=== PATIENT | female | born 1945 | race Caucasian/White ===

== ENCOUNTER 2017-04-06 07:58 | Inpatient (IN) | payer MEDICARE, OTHER ==
[~2017-04-06] VITALS: Ht 160 cm; Wt 103.9 kg
[~2017-04-06 07:58] MED LIST: ? BP MED; AMLO10 PO; ASPI325 PO; ASPI81EC; CPAP; DIPASPER PO; Furosemide20 MG PO; GLAUCOMA DROPS; Humalog100 UNIT/1 SC; INSLI100I SUBQ; INSULANI SUBQ; INSULANPEN SC; IRON; IRON PO; LATA.005SO BOTHEYES; LISHYD2025 PO; LISI5 PO; METF500; METF500 PO; METO25 PO; METO25ER PO; NABU500; NALT50 PO; OMEP20ER PO; PRAV20 PO; PRAZ1 PO; ROSI4; ROSU10TA; SERT50; SERT50 PO; Xalatan2.5 ML LEFTEYE; [UNRECOGNIZED DRUG - REMARK]; [UNRECOGNIZED DRUG - REMARK]
[2017-04-06] MEDS ORDERED: CYCL0.05OP (08:20)
[2017-04-06] MEDS ORDERED: NEBI5 PO (08:21)
[2017-04-06] MEDS ORDERED: ASPI81CH PO (08:21)
[2017-04-06 08:48] LABS: BASOPHILS ABSOLUTE AUTO 0.02 K/mm3 (0.00-0.23); BASOPHILS PERCENT AUTO 0 % (0-2); EOSINOPHILS ABSOLUTE AUTO 0.24 K/mm3 (0.00-0.68); EOSINOPHILS PERCENT AUTO 2 % (0-6); Hematocrit 33.2 % (33.0-51.0); Hemoglobin 10.6 g/dL (11.5-16.0); IMMATURE GRAN ABSOLUTE AUTO 0.05 K/mm3 (0.00-0.10); IMMATURE GRAN PERCENT AUTO 0 % (0-1); LYMPHOCYTES ABSOLUTE AUTO 1.22 K/mm3 (0.84-5.20); LYMPHOCYTES PERCENT AUTO 10 % (21-46); MONOCYTES ABSOLUTE AUTO 0.67 K/mm3 (0.16-1.47); MONOCYTES PERCENT AUTO 6 % (4-13); Mean Corpuscular HGB Conc 31.9 g/dL (31.5-36.5); Mean Corpuscular Volume 91 fL (80-100); Mean Platelet Volume 10.1 fL (9.1-12.4); NEUTROPHILS ABSOLUTE AUTO 9.52 K/mm3 (1.96-9.15); NEUTROPHILS PERCENT AUTO 81 % (41-73); NRBC ABSOLUTE 0.02 K/mm3 (0.00-0.02); NRBC Auto 0.2 /100 WBC (0.0-0.2); Platelet Count 323 K/mm3 (150-400); RDW Coefficient Variation 15.4 % (11.7-14.2); RDW Standard Deviation 50.3 fL (35.1-46.3); Red Blood Cell Count 3.66 M/mm3 (3.80-5.20); White Blood Cell Count 11.72 K/mm3 (4.00-11.30)
[2017-04-06 08:49] LABS: PCO2 Arterial 42.1 mmHg (35-45)
[2017-04-06 08:52] LABS: Alanine Aminotransfer (ALT/SGP 16 U/L (12-78); Albumin, Blood 3.3 g/dL (3.4-5.0); Albumin/Globulin Ratio 0.8 (0.8-1.8); Alk Phos 71 U/L (50-136); Anion Gap 9 mmol/L (6-16); Aspartate Aminotrans (AST/SGOT 11 U/L (12-37); Bilirubin, Total 0.4 mg/dL (0.1-1.0); Blood Urea Nitrogen 19 mg/dL (8-24); Bun/Creatinine Ratio 15.6 (12.0-20.0); CO2, Blood 25 mmol/L (21-32); Calcium, Blood 8.1 mg/dL (8.5-10.1); Chloride, Blood 106 mmol/L (98-108); Creatinine, Blood 1.22 mg/dL (0.40-1.00); Glomerular Filtration Rate 46 (60-); Glucose, Blood 205 mg/dL (70-99); Potassium, Blood 4.1 mmol/L (3.5-5.5); Sodium, Blood 140 mmol/L (136-145); Total Protein, Blood 7.3 g/dL (6.4-8.2); Troponin I <0.015 ng/mL (0.000-0.040)
[2017-04-06 10:15] LABS: Influenza A Negative (NEGATIVE); Influenza B Negative (NEGATIVE)
[2017-04-07 02:30] LABS: BASOPHILS ABSOLUTE AUTO 0.02 K/mm3 (0.00-0.23); BASOPHILS PERCENT AUTO 0 % (0-2); EOSINOPHILS ABSOLUTE AUTO 0.21 K/mm3 (0.00-0.68); EOSINOPHILS PERCENT AUTO 3 % (0-6); Hematocrit 28.4 % (33.0-51.0); Hemoglobin 9.1 g/dL (11.5-16.0); IMMATURE GRAN ABSOLUTE AUTO 0.03 K/mm3 (0.00-0.10); IMMATURE GRAN PERCENT AUTO 0 % (0-1); LYMPHOCYTES ABSOLUTE AUTO 1.96 K/mm3 (0.84-5.20); LYMPHOCYTES PERCENT AUTO 23 % (21-46); MONOCYTES ABSOLUTE AUTO 0.66 K/mm3 (0.16-1.47); MONOCYTES PERCENT AUTO 8 % (4-13); Mean Corpuscular HGB 28.9 pg (26.0-34.0); Mean Corpuscular Volume 90 fL (80-100); Mean Platelet Volume 9.4 fL (9.1-12.4); NEUTROPHILS ABSOLUTE AUTO 5.65 K/mm3 (1.96-9.15); NEUTROPHILS PERCENT AUTO 66 % (41-73); Platelet Count 273 K/mm3 (150-400); RDW Coefficient Variation 15.1 % (11.7-14.2); Red Blood Cell Count 3.15 M/mm3 (3.80-5.20); White Blood Cell Count 8.53 K/mm3 (4.00-11.30)
[2017-04-07 02:51] LABS: Alanine Aminotransfer (ALT/SGP 13 U/L (12-78); Albumin, Blood 2.8 g/dL (3.4-5.0); Albumin/Globulin Ratio 0.8 (0.8-1.8); Alk Phos 59 U/L (50-136); Anion Gap 6 mmol/L (6-16); Aspartate Aminotrans (AST/SGOT 12 U/L (12-37); Bilirubin, Total 0.3 mg/dL (0.1-1.0); Blood Urea Nitrogen 18 mg/dL (8-24); Bun/Creatinine Ratio 13.5 (12.0-20.0); CHOL/HDL RATIO 4.3; CO2, Blood 29 mmol/L (21-32); Chloride, Blood 105 mmol/L (98-108); Cholesterol 150 mg/dL (50-200); Creatinine, Blood 1.33 mg/dL (0.40-1.00); Globulin, Blood 3.4 g/dL (2.2-4.0); Glomerular Filtration Rate 42 (60-); Glucose, Blood 113 mg/dL (70-99); HDL Cholesterol 35 mg/dL (>39); Low Density Lipoprotein Chol 70 mg/dL (0-110); Magnesium, Blood 1.7 mg/dL (1.6-2.4); Potassium, Blood 3.7 mmol/L (3.5-5.5); Sodium, Blood 140 mmol/L (136-145); Total Protein, Blood 6.2 g/dL (6.4-8.2); Triglycerides 225 mg/dL (30-160); Very Low Density Lipoprot Chol 45 mg/dL (6-32)
[2017-04-07 03:02] LABS: Percent Saturation 12.1 % (15.0-50.0)
[2017-04-08 04:48] LABS: BASOPHILS ABSOLUTE AUTO 0.01 K/mm3 (0.00-0.23); BASOPHILS PERCENT AUTO 0 % (0-2); EOSINOPHILS ABSOLUTE AUTO 0.27 K/mm3 (0.00-0.68); EOSINOPHILS PERCENT AUTO 4 % (0-6); Hematocrit 29.8 % (33.0-51.0); Hemoglobin 9.7 g/dL (11.5-16.0); IMMATURE GRAN ABSOLUTE AUTO 0.03 K/mm3 (0.00-0.10); IMMATURE GRAN PERCENT AUTO 0 % (0-1); LYMPHOCYTES ABSOLUTE AUTO 1.42 K/mm3 (0.84-5.20); LYMPHOCYTES PERCENT AUTO 19 % (21-46); MONOCYTES ABSOLUTE AUTO 0.77 K/mm3 (0.16-1.47); MONOCYTES PERCENT AUTO 10 % (4-13); Mean Corpuscular HGB 28.8 pg (26.0-34.0); Mean Corpuscular HGB Conc 32.6 g/dL (31.5-36.5); Mean Corpuscular Volume 88 fL (80-100); Mean Platelet Volume 9.9 fL (9.1-12.4); NEUTROPHILS ABSOLUTE AUTO 5.07 K/mm3 (1.96-9.15); NEUTROPHILS PERCENT AUTO 67 % (41-73); Platelet Count 278 K/mm3 (150-400); RDW Coefficient Variation 15.1 % (11.7-14.2); Red Blood Cell Count 3.37 M/mm3 (3.80-5.20); White Blood Cell Count 7.57 K/mm3 (4.00-11.30)
[2017-04-08 05:09] LABS: Albumin, Blood 2.7 g/dL (3.4-5.0); Albumin/Globulin Ratio 0.8 (0.8-1.8); Bilirubin, Total 0.2 mg/dL (0.1-1.0); Bun/Creatinine Ratio 16.4 (12.0-20.0); Calcium, Blood 7.8 mg/dL (8.5-10.1); Creatinine, Blood 1.4 mg/dL (0.40-1.00); Globulin, Blood 3.5 g/dL (2.2-4.0); Potassium, Blood 3.9 mmol/L (3.5-5.5); Total Protein, Blood 6.2 g/dL (6.4-8.2)
[2017-04-09 05:03] LABS: BASOPHILS ABSOLUTE AUTO 0.02 K/mm3 (0.00-0.23); BASOPHILS PERCENT AUTO 0 % (0-2); EOSINOPHILS ABSOLUTE AUTO 0.32 K/mm3 (0.00-0.68); EOSINOPHILS PERCENT AUTO 4 % (0-6); Hematocrit 29.3 % (33.0-51.0); Hemoglobin 9.4 g/dL (11.5-16.0); IMMATURE GRAN ABSOLUTE AUTO 0.04 K/mm3 (0.00-0.10); IMMATURE GRAN PERCENT AUTO 1 % (0-1); LYMPHOCYTES PERCENT AUTO 25 % (21-46); MONOCYTES ABSOLUTE AUTO 0.64 K/mm3 (0.16-1.47); MONOCYTES PERCENT AUTO 8 % (4-13); Mean Corpuscular HGB 28.7 pg (26.0-34.0); Mean Corpuscular HGB Conc 32.1 g/dL (31.5-36.5); Mean Corpuscular Volume 89 fL (80-100); Mean Platelet Volume 9.6 fL (9.1-12.4); NEUTROPHILS ABSOLUTE AUTO 4.99 K/mm3 (1.96-9.15); NEUTROPHILS PERCENT AUTO 62 % (41-73); Platelet Count 308 K/mm3 (150-400); RDW Coefficient Variation 15.1 % (11.7-14.2); RDW Standard Deviation 48.6 fL (35.1-46.3); Red Blood Cell Count 3.28 M/mm3 (3.80-5.20); White Blood Cell Count 8.01 K/mm3 (4.00-11.30)
[2017-04-09 05:30] LABS: Bun/Creatinine Ratio 18.3 (12.0-20.0); Creatinine, Blood 1.42 mg/dL (0.40-1.00); Potassium, Blood 3.9 mmol/L (3.5-5.5)
[2017-04-11 06:03] LABS: Calcium, Blood 8.7 mg/dL (8.5-10.1); Creatinine, Blood 1.59 mg/dL (0.40-1.00); Potassium, Blood 4.8 mmol/L (3.5-5.5)
[2017-04-11] MEDS ORDERED: ALBU90OI INH (10:26)
[2017-04-11] MEDS ORDERED: LEVFLO500 PO (10:29)
[2017-04-11] MEDS ORDERED: LOSA50 PO (10:29)
[2017-04-11] MEDS ORDERED: SPIR25 PO (10:31)
[2017-04-11] MEDS ORDERED: TIMOPTIC 0.5%1 EACH BOTHEYES (10:31)
== END 2017-04-11 13:15 | disposition home or self-care (01) | DRG 291 ==
LOC: ER 07:58 → PCU 10:05 → MEDS 04-10 16:27 → ENPENDDIS 04-11 09:30 → MEDS 04-11 13:15
PROVIDERS: Emergency Medicine; Internal Medicine
PROC: 5A09357 Assistance with Respiratory Ventilation, Less than 24 Consecutive Hours, Continuous Positive Airway Pressure (ICD-10-PCS; principal; 2017-04-06)
DX: I13.0 Hypertensive heart and chronic kidney disease with heart failure and stage 1 through stage 4 chronic kidney disease, or unspecified chronic kidney disease (principal); I50.33 Acute on chronic diastolic (congestive) heart failure; J96.01 Acute respiratory failure with hypoxia; J18.9 Pneumonia, unspecified organism; E11.22 Type 2 diabetes mellitus with diabetic chronic kidney disease; N18.3 Chronic kidney disease, stage 3 (moderate); R00.1 Bradycardia, unspecified; D63.1 Anemia in chronic kidney disease; J44.0 Chronic obstructive pulmonary disease with (acute) lower respiratory infection; E78.5 Hyperlipidemia, unspecified; H40.9 Unspecified glaucoma; E11.39 Type 2 diabetes mellitus with other diabetic ophthalmic complication; I25.10 Atherosclerotic heart disease of native coronary artery without angina pectoris; Z87.891 Personal history of nicotine dependence; Z96.642 Presence of left artificial hip joint; Z79.82 Long term (current) use of aspirin; Z79.4 Long term (current) use of insulin; Z79.84 Long term (current) use of oral hypoglycemic drugs; Z79.899 Other long term (current) drug therapy; Z88.1 Allergy status to other antibiotic agents; Z88.0 Allergy status to penicillin; Z88.8 Allergy status to other drugs, medicaments and biological substances
CPT/HCPCS: 36415; 36600; 71010; 80048; 80053; 80061; 82728; 82803; 82947; 83036; 83540; 83550; 83605; 83735; 83880; 84145; 84484; 85025; 87040; 87804; 93005; 93010; 94640; 94660; 94762; 96365; 96375; 99285; J1650; J1815; J1940; J1956

== ENCOUNTER → 2017-05-21 | Outpatient (CLI) | payer MEDICARE, OTHER ==
[~2017-05-21] MED LIST changes: +ALBU90OI INH; +ASPI81CH PO; +CYCL0.05OP; +LEVFLO500 PO; +LOSA50 PO; +NEBI5 PO; +SPIR25 PO; +TIMOPTIC 0.5%1 EACH BOTHEYES
[2017-05-23 11:29] LABS: HPV Genotype 16 Not Detected (NOTDET); HPV Genotype 18 Not Detected (NOTDET)
[2017-05-30 08:09] LABS: HPV High Risk Other Not Detected (NOTDET)
== END | disposition home or self-care (01) ==
LOC: OLS 16:28
PROVIDERS: Nurse Practitioner Women's Health
DX: Z12.72 Encounter for screening for malignant neoplasm of vagina (principal); Z91.89 Other specified personal risk factors, not elsewhere classified
CPT/HCPCS: 87624; G0123

== ENCOUNTER → 2018-05-27 | Outpatient (CLI) | payer MEDICARE, OTHER ==
[2018-05-29 12:07] LABS: HPV 16 Negative (Negative); HPV 18 Negative (Negative); HPV OTHER HR TYPES Negative (Negative)
== END | disposition home or self-care (01) ==
LOC: LAB SHORT 18:19 → LAB 18:19
PROVIDERS: Nurse Practitioner Women's Health
DX: Z12.72 Encounter for screening for malignant neoplasm of vagina (principal); Z91.89 Other specified personal risk factors, not elsewhere classified
CPT/HCPCS: 87624; G0123

== ENCOUNTER 2018-12-06 16:10 | Emergency (ER) | payer MEDICARE, OTHER ==
[~2018-12-06] VITALS: Ht 162.6 cm; Wt 99.8 kg
[2018-12-06 16:57] LABS: BASOPHILS ABSOLUTE AUTO 0.04 K/mm3 (0.00-0.23); BASOPHILS PERCENT AUTO 0 % (0-2); EOSINOPHILS ABSOLUTE AUTO 0.37 K/mm3 (0.00-0.68); EOSINOPHILS PERCENT AUTO 4 % (0-6); Hematocrit 36.6 % (33.0-51.0); IMMATURE GRAN ABSOLUTE AUTO 0.09 K/mm3 (0.00-0.10); IMMATURE GRAN PERCENT AUTO 1 % (0-1); LYMPHOCYTES ABSOLUTE AUTO 2.07 K/mm3 (0.84-5.20); LYMPHOCYTES PERCENT AUTO 23 % (21-46); MONOCYTES ABSOLUTE AUTO 0.65 K/mm3 (0.16-1.47); MONOCYTES PERCENT AUTO 7 % (4-13); Mean Corpuscular HGB 30.1 pg (26.0-34.0); Mean Corpuscular HGB Conc 32.8 g/dL (31.5-36.5); Mean Corpuscular Volume 92 fL (80-100); Mean Platelet Volume 10.1 fL (9.1-12.4); NEUTROPHILS ABSOLUTE AUTO 5.98 K/mm3 (1.96-9.15); NEUTROPHILS PERCENT AUTO 65 % (41-73); Platelet Count 264 K/mm3 (150-400); RDW Coefficient Variation 14.6 % (11.7-14.2); RDW Standard Deviation 48.3 fL (35.1-46.3); Red Blood Cell Count 3.99 M/mm3 (3.80-5.20)
[2018-12-06 17:12] LABS: Alanine Aminotransfer (ALT/SGP 19 U/L (12-78); Albumin, Blood 3.6 g/dL (3.4-5.0); Albumin/Globulin Ratio 0.9 (0.8-1.8); Alk Phos 91 U/L (50-136); Anion Gap 7 mmol/L (6-16); Aspartate Aminotrans (AST/SGOT 15 U/L (12-37); Bilirubin, Total 0.3 mg/dL (0.1-1.0); Blood Urea Nitrogen 23 mg/dL (8-24); Bun/Creatinine Ratio 15.3 (12.0-20.0); CO2, Blood 26 mmol/L (21-32); Calcium, Blood 8.5 mg/dL (8.5-10.1); Chloride, Blood 101 mmol/L (98-108); Globulin, Blood 3.8 g/dL (2.2-4.0); Glomerular Filtration Rate 36 (60-); Glucose, Blood 251 mg/dL (70-99); Potassium, Blood 4.1 mmol/L (3.5-5.5); Sodium, Blood 134 mmol/L (136-145); Total Protein, Blood 7.4 g/dL (6.4-8.2); Troponin I <0.015 ng/mL (0.000-0.040)
[2018-12-06] MEDS ORDERED: DULO60 PO (18:09)
[2018-12-06] MEDS ORDERED: PANT20 PO (18:10)
[2018-12-06] MEDS ORDERED: CLOP75 PO (18:10)
[2018-12-06] MEDS ORDERED: METO50ER PO (18:10)
[2018-12-06] MEDS ORDERED: Crestor5 MG PO (18:11)
[2018-12-06 18:28] LABS: Source, Urine Clean Catch
[2018-12-06 18:41] LABS: Bilirubin, Urine Neg (Neg); Blood, Urine Neg (Neg); Glucose Qualitative, Urine 3+ (Neg); Ketones, Urine Neg (Neg); Leukocyte Esterase, Urine 1+ (Neg); Nitrite, Urine Neg (Neg); Protein, Urine Neg (Neg); Urobilinogen, Urine NORM (Normal)
[2018-12-06 18:54] LABS: Appearance, Urine Hazy (Clear); Color, Urine Yellow (P-Yellow)
[2018-12-06 19:10] LABS: Bacteria Mod /hpf; Red Blood Cells, Urine Rare /hpf (0-2); Squamous Epithelial Cells Many /hpf (Few); White Blood Cells, Urine 0-2 /hpf (0-5)
[2018-12-06 19:55] LABS: Source, Urine Clean Catch
[2018-12-06 19:58] LABS: Bilirubin, Urine Neg (Neg); Blood, Urine Neg (Neg); Glucose Qualitative, Urine 4+ (Neg); Ketones, Urine Neg (Neg); Leukocyte Esterase, Urine Neg (Neg); Nitrite, Urine Neg (Neg); Protein, Urine 1+ (Neg); Urobilinogen, Urine NORM (Normal)
[2018-12-06 20:10] LABS: Appearance, Urine Clear (Clear); Color, Urine Yellow (P-Yellow)
[2018-12-06] MEDS ORDERED: Colace100 MG PO (20:17)
[2018-12-16] MEDS ORDERED: Isosorbide Mono60 MG PO (12:19)
[2018-12-16] MEDS ORDERED: TORSE20 PO (12:20)
[2018-12-16] MEDS ORDERED: BASAGLAR SC (12:21)
[2018-12-16] MEDS ORDERED: PANT20 PO (12:22)
[2018-12-16] MEDS ORDERED: VITAMIN B 12 (12:23)
[2018-12-16] MEDS ORDERED: NITR.4SL SL ×2 (12:23→12:24)
[2018-12-16] MEDS ORDERED: OMEGA 3 ETHYL ESTERS PO (12:25)
[2018-12-16] MEDS ORDERED: Estrace Vagin42.5 GM VAG (12:30)
[2018-12-16] MEDS ORDERED: SERT100 PO (12:31)
[2018-12-16] MEDS ORDERED: PROAIR HFA INH (12:33)
== END 2018-12-06 20:55 | disposition home or self-care (01) ==
LOC: ER 16:10
PROVIDERS: Emergency Medicine; Physician Assistant
DX: K59.00 Constipation, unspecified (principal); Z87.01 Personal history of pneumonia (recurrent); Z87.891 Personal history of nicotine dependence; Z88.0 Allergy status to penicillin; Z88.1 Allergy status to other antibiotic agents; Z88.8 Allergy status to other drugs, medicaments and biological substances; Z79.02 Long term (current) use of antithrombotics/antiplatelets; Z79.899 Other long term (current) drug therapy; Z79.4 Long term (current) use of insulin
CPT/HCPCS: 36415; 71046; 74176; 80053; 81001; 83880; 84484; 85025; 87086; 93005; 93010; 99284-25

== ENCOUNTER 2018-12-17 06:50 | Day surgery (SDC) | payer MEDICARE, OTHER ==
[~2018-12-17] VITALS: Ht 162.6 cm; Wt 100.0 kg
[~2018-12-17 06:50] MED LIST changes: +BASAGLAR SC; +CLOP75 PO; +Colace100 MG PO; +Crestor5 MG PO; +DULO60 PO; +Estrace Vagin42.5 GM VAG; +Isosorbide Mono60 MG PO; +METO50ER PO; +NITR.4SL SL; +OMEGA 3 ETHYL ESTERS PO; +PANT20 PO; +PROAIR HFA INH; +SERT100 PO; +TORSE20 PO; +VITAMIN B 12
[2018-12-17] MEDS ORDERED: TORSE20 PO (07:13)
[2018-12-17] MEDS ORDERED: BASAGLAR INSULIN SC (07:19)
[2018-12-17] MEDS ORDERED: LOSA25 PO (07:24)
--- NOTE | 2018-12-17 11:39 | NUR ---
PT TO RECOVERY ROOM POST PROCEDURE. PT IS DROWSY, ANSWERING QUESTIONS. PT DENIES PAIN, SOB OR NAUSEA. MONITOR SB WITH 1ST DEGREE 50'S, B/P 143/63, SPO2 91-92% RA. L GROIN SITE NO SWELLING/HEMATOMA, TEGADERM DRSG INTACT. R DP SITE NO SWELLING/HEMATOMA, MATTEO DRSG INTACT-DRAINAGE MAPPED. RLE: PULSES DP 2+. PT 1+. PT'S FAMILY AT BEDSIDE, ATTENTIVE.
--- NOTE | 2018-12-17 12:42 | NUR ---
PT REPORTS R LEG DISCOMFORT 7/10, ACHEY IN CHARACTER; DR SCOTT NOTIFIED; ORDERS REVEVIED FOR TYLENOL PO.
--- NOTE | 2018-12-17 13:35 | NUR ---
PT REPORTS RELIEF AFTER TYLENOL, R LEG DISCOMFORT 5/10. PT TAKING LUNCH WITHOUT PROBLEM.
--- NOTE | 2018-12-17 15:10 | NUR ---
PT DRESSED SELF WITH MINIMAL ASSISTANCE, SITES UNCHANGED. PT AND FAMILY RECEIEVED DISCHARGE INSTRUCTIONS, MED LIST AND SUPPLEMENTAL RESOURCES; VERBALIZED GOOD UNDERSTANDING. IV REMOVED, CANNULA INTACT.
--- NOTE | 2018-12-17 15:15 | NUR ---
PT LEFT FACILITY VIA W/C WITH FAMILY CONDITION STABLE.
== END 2018-12-17 15:15 | disposition home or self-care (01) ==
LOC: MHTC 06:50
DX: I70.221 Atherosclerosis of native arteries of extremities with rest pain, right leg (principal); Z79.899 Other long term (current) drug therapy; Z79.82 Long term (current) use of aspirin; Z79.4 Long term (current) use of insulin; Z88.8 Allergy status to other drugs, medicaments and biological substances; Z88.0 Allergy status to penicillin; Z91.012 Allergy to eggs
CPT/HCPCS: 36140; 37227; 75625; 75716; 75774; 76937; 82947; 99152; 99153; A9270; C1714; C1725; C1760; C1769; C1874; C1884; C1887; C1894; C2623; J1644; J2250; J3010; J7030; Q9967

== ENCOUNTER 2019-03-20 10:25 | Day surgery (SDC) | payer MEDICARE, OTHER ==
[~2019-03-20] VITALS: Ht 160 cm; Wt 230.4 kg
[~2019-03-20 10:25] MED LIST changes: +Aspirin EC81 MG PO; +BASAGLAR INSULIN SC; +BASAGLAR K100 UNIT/2 SC; +LIRA0.6P SC; +LOSA25 PO; +Novolog100 UNIT/1 SC; +Omega 3 1,0001 EACH PO
--- NOTE | 2019-03-20 12:09 | NUR ---
03/20/19 1209 Parul Elkins O2 @ 10L WITH POM MASK, CO2 WITH NASAL CANNULA
== END 2019-03-20 12:48 | disposition home or self-care (01) ==
LOC: ORSCSDS 10:25
PROVIDERS: Surgery
PROC: 0DB58ZX Excision of Esophagus, Via Natural or Artificial Opening Endoscopic, Diagnostic (ICD-10-PCS; principal; 2019-03-20 13:00)
PROC: 0DB68ZX Excision of Stomach, Via Natural or Artificial Opening Endoscopic, Diagnostic (ICD-10-PCS; principal; 2019-03-20 13:00)
DX: R10.13 Epigastric pain (principal); K31.7 Polyp of stomach and duodenum; R19.4 Change in bowel habit; I25.10 Atherosclerotic heart disease of native coronary artery without angina pectoris; E11.22 Type 2 diabetes mellitus with diabetic chronic kidney disease; I12.9 Hypertensive chronic kidney disease with stage 1 through stage 4 chronic kidney disease, or unspecified chronic kidney disease; N18.9 Chronic kidney disease, unspecified; Z79.899 Other long term (current) drug therapy; E66.01 Morbid (severe) obesity due to excess calories; Z68.41 Body mass index [BMI] 40.0-44.9, adult
CPT/HCPCS: 82947; 88305; 88341; 88342; J2405; J2704; J7120

== ENCOUNTER 2019-05-16 05:54 | Day surgery (SDC) | payer MEDICARE, OTHER ==
[~2019-05-16] VITALS: Ht 160 cm; Wt 104.4 kg
--- NOTE | 2019-05-16 06:36 | NUR ---
INTO SDS ADMISSION TO UNIT STARTED. VSS. History, Chart, Medications and Allergies reviewed before start of procedure.Lungs clear T/O to Auscultation. Patient confirms NPO status and agrees with scheduled surgery.
--- NOTE | 2019-05-16 07:48 | NUR ---
05/16/19 0748 Lenny Jones Patient to ENDO 1History, Chart, Medications and Allergies reviewed before start of procedure.MONITOR INTACT WITH CONTINUOUS PULSE OXIMETRY AND INTERMITTENT BP.See Anesthesia record. NON REBREATHER.
--- NOTE | 2019-05-16 08:26 | NUR ---
PT INTO STEP. VSS. AT BEDSIDE. PT TOLERATING COFFEE AND WATER.
--- NOTE | 2019-05-16 08:27 | NUR ---
DR. ELDER CONSULTING WITH PT.
--- NOTE | 2019-05-16 09:17 | NUR ---
PT MEETS CRITERIA FOR DC. Discharge instructions reviewed with patient. Patient verbalizes understanding. Copy given to patient to take home. Discharged via wheelchair to private car for ride home.
== END 2019-05-16 09:10 | disposition home or self-care (01) ==
LOC: ORSCMMR 05:54 → ORD 07:30 → ORSCMMR 07:30
PROVIDERS: Surgery
PROC: 0DBF8ZX Excision of Right Large Intestine, Via Natural or Artificial Opening Endoscopic, Diagnostic (ICD-10-PCS; principal; 2019-05-16 07:30)
DX: R19.4 Change in bowel habit (principal); R10.9 Unspecified abdominal pain; E11.9 Type 2 diabetes mellitus without complications; K21.9 Gastro-esophageal reflux disease without esophagitis; F41.9 Anxiety disorder, unspecified; G47.30 Sleep apnea, unspecified; D64.9 Anemia, unspecified; E78.5 Hyperlipidemia, unspecified; I50.9 Heart failure, unspecified; G47.33 Obstructive sleep apnea (adult) (pediatric); I12.9 Hypertensive chronic kidney disease with stage 1 through stage 4 chronic kidney disease, or unspecified chronic kidney disease; E11.22 Type 2 diabetes mellitus with diabetic chronic kidney disease; N18.3 Chronic kidney disease, stage 3 (moderate); E66.01 Morbid (severe) obesity due to excess calories; Z68.41 Body mass index [BMI] 40.0-44.9, adult; Z79.82 Long term (current) use of aspirin; Z79.4 Long term (current) use of insulin; Z79.899 Other long term (current) drug therapy
CPT/HCPCS: 82947; 88305; J2001; J2405; J2704; J7120

== ENCOUNTER → 2020-05-03 | Outpatient (CLI) | payer MEDICARE, OTHER ==
[~2020-05-03] MED LIST changes: +Aspir 8181 MG PO; +BASAGLAR K100 UNIT/1 SC; +DICLOFENAC SOD100 G1 TOP; +DORZOLAMIDE-TIM10 ML BOTHEYES; +DULO30 PO; +ESTRADIOL1 MG PO; +HUMALOG KW100 UNIT/1 SC; +HUMALOG100 UNIT/1 SQ; +ISOSORBIDE MONO60 MG PO; +LATANOPROST2.5 M3 BOTHEYES; +ROSU5 PO; +VICTOZA 2-0.6 MG/0.1 SC
== END | disposition home or self-care (01) ==
LOC: LAB 13:55 → LAB SHORT 13:55
DX: L97.524 Non-pressure chronic ulcer of other part of left foot with necrosis of bone (principal); L08.9 Local infection of the skin and subcutaneous tissue, unspecified; E11.42 Type 2 diabetes mellitus with diabetic polyneuropathy; Z89.422 Acquired absence of other left toe(s)
CPT/HCPCS: 87070; 87205; 88305; 88311

== ENCOUNTER 2020-06-29 11:14 | Inpatient (IN) | payer MEDICARE, OTHER ==
[~2020-06-29] VITALS: Ht 160 cm; Wt 103.4 kg
[~2020-06-29 11:14] MED LIST changes: -Aspir 8181 MG PO; -BASAGLAR K100 UNIT/1 SC; -DICLOFENAC SOD100 G1 TOP; -DORZOLAMIDE-TIM10 ML BOTHEYES; -DULO30 PO; -ESTRADIOL1 MG PO; -HUMALOG KW100 UNIT/1 SC; -HUMALOG100 UNIT/1 SQ; -ISOSORBIDE MONO60 MG PO; -LATANOPROST2.5 M3 BOTHEYES; -ROSU5 PO; -VICTOZA 2-0.6 MG/0.1 SC
[2020-06-29 11:38] LABS: BASOPHILS ABSOLUTE AUTO 0.04 K/mm3 (0.00-0.23); BASOPHILS PERCENT AUTO 0 % (0-2); EOSINOPHILS PERCENT AUTO 0 % (0-6); Hematocrit 41.4 % (33.0-51.0); Hemoglobin 13.8 g/dL (11.5-16.0); IMMATURE GRAN ABSOLUTE AUTO 0.16 K/mm3 (0.00-0.10); IMMATURE GRAN PERCENT AUTO 1 % (0-1); LYMPHOCYTES ABSOLUTE AUTO 0.95 K/mm3 (0.84-5.20); LYMPHOCYTES PERCENT AUTO 4 % (21-46); MONOCYTES ABSOLUTE AUTO 2.14 K/mm3 (0.16-1.47); MONOCYTES PERCENT AUTO 10 % (4-13); Mean Corpuscular HGB 29.5 pg (26.0-34.0); Mean Corpuscular HGB Conc 33.3 g/dL (31.5-36.5); Mean Corpuscular Volume 89 fL (80-100); Mean Platelet Volume 10.2 fL (9.1-12.4); NEUTROPHILS ABSOLUTE AUTO 18.73 K/mm3 (1.96-9.15); NEUTROPHILS PERCENT AUTO 85 % (41-73); Platelet Count 320 K/mm3 (150-400); RDW Coefficient Variation 14.1 % (11.7-14.2); RDW Standard Deviation 45.2 fL (35.1-46.3); Red Blood Cell Count 4.68 M/mm3 (3.80-5.20); White Blood Cell Count 22.02 K/mm3 (4.00-11.30)
[2020-06-29 11:57] LABS: Albumin, Blood 3.4 g/dL (3.4-5.0); Albumin/Globulin Ratio 0.8 (0.8-1.8); Bilirubin, Total 0.6 mg/dL (0.1-1.0); Bun/Creatinine Ratio 14.7 (12.0-20.0); Calcium, Blood 8.9 mg/dL (8.5-10.1); Creatinine, Blood 1.7 mg/dL (0.40-1.00); Globulin, Blood 4.3 g/dL (2.2-4.0); Potassium, Blood 3.8 mmol/L (3.5-5.5); Total Protein, Blood 7.7 g/dL (6.4-8.2)
[2020-06-29 12:25] LABS: Influenza A, PCR NEGATIVE (NEGATIVE); Influenza B, PCR NEGATIVE (NEGATIVE); Resp Syncytial Virus, PCR NEGATIVE (NEGATIVE); SARS-Cov-2 (COVID-19) PCR, MMC NEGATIVE (NEGATIVE)
[2020-06-29] MEDS ORDERED: Aspir 8181 MG PO (12:32)
[2020-06-29] MEDS ORDERED: CLOP75 PO (12:32)
[2020-06-29] MEDS ORDERED: PANT20 PO (12:32)
[2020-06-29] MEDS ORDERED: NITR.4SL SL (12:33)
[2020-06-29] MEDS ORDERED: ESTRADIOL1 MG PO (12:33)
[2020-06-29] MEDS ORDERED: DULO30 PO (12:34)
[2020-06-29] MEDS ORDERED: LATANOPROST2.5 M3 BOTHEYES (12:34)
[2020-06-29] MEDS ORDERED: HUMALOG100 UNIT/1 SQ (12:34)
[2020-06-29] MEDS ORDERED: BASAGLAR K100 UNIT/1 SC (12:35)
[2020-06-29] MEDS ORDERED: SPIR25 PO (12:36)
[2020-06-29] MEDS ORDERED: VICTOZA 2-0.6 MG/0.1 SC (12:36)
[2020-06-29] MEDS ORDERED: ROSU5 PO (12:37)
[2020-06-29] MEDS ORDERED: AMLO10 PO (12:37)
[2020-06-29] MEDS ORDERED: TORSE20 PO (12:37)
[2020-06-29] MEDS ORDERED: LOSA25 PO (12:38)
[2020-06-29] MEDS ORDERED: METO50ER PO (12:38)
[2020-06-29] MEDS ORDERED: ISOSORBIDE MONO60 MG PO (12:38)
[2020-06-29] MEDS ORDERED: DORZOLAMIDE-TIM10 ML BOTHEYES (13:58)
[2020-06-29] MEDS ORDERED: DICLOFENAC SOD100 G1 TOP (13:58)
[2020-06-29 14:23] LABS: Base Excess Venous 2.3 mmol/L; Bicarbonate Venous 25.5 mmol/L (24.0-30.0); PCO2 Venous 44.2 mmHg (38-42); PO2 Venous 39.3 mmHg (38-42)
[2020-06-29 15:58] LABS: Source, Urine Voided
[2020-06-29 16:16] LABS: Appearance, Urine Clear (Clear); Bilirubin, Urine Neg (Neg); Blood, Urine 1+ (Neg); Color, Urine Yellow (P-Yellow); Glucose Qualitative, Urine Neg (Neg); Ketones, Urine Neg (Neg); Leukocyte Esterase, Urine Neg (Neg); Nitrite, Urine Neg (Neg); Protein, Urine 1+ (Neg); Specific Gravity, Urine 1.015 (1.003-1.022); Urobilinogen, Urine NORM (Normal)
[2020-06-29 16:41] LABS: Bacteria Few /hpf; Squamous Epithelial Cells Many /hpf (Few); White Blood Cells, Urine 0-2 /hpf (0-5)
[2020-06-29 16:42] LABS: Calcium Oxalate Crystals Few /hpf
--- NOTE | 2020-06-29 18:34 | NUR ---
PT ARRIVED IN THE UNIT FROM [facility] VIA STRETCHER PT WAS ABLE TO STAND TO AMBULATE WITH ASSIST TO TRANSFER TO PCU BED. PT IS HERE FOR SBO/APPENDICITIS AND IS FOR PROCEDURE TONIGHT (EXLAP), DR OTTO SURGERY CONSULTED. PT KEPT NPO. PT IS ALERT AND ORIENTED AT BASELINE, SEEMS FORGETFUL AT TIMES, VITALS HRR SR 70'S, BP SYSTOLIC 150'S, SATS ABOVE 90% ON 3L, AFEBRILE. PT HAS ABD PAIN 8/10 UPON ARRIVAL FENTANYL IV 50MCG WAS GIVEN AND WAS EFFECTIVE, CIPRO AND FLAGYL INFUSED WELL, NS CURRENTLY RUNNING AT 75MLS/HR. PT USES BSC FOR TOILETING. ORIENTED TO ROOM AND UNIT. NO OTHER COMPLAINS AT THIS TIME, AT BEDSIDE DURING VISITING HOURS AWARE OF THE PLAN. PT NOW IN BED RESTING, ABLE TO MAKE NEEDS KNOWN, WILL REPORT TO ONCOMING SHIFT
--- NOTE | 2020-06-29 23:10 | NUR ---
RECOVERY PT IN ICU FROM 2154 -TO- 2304 FOR RECOVERY FOLLOWING A RIGHT COLECTOMY. SHE IS ALERT AND ORIENTED X 4, BUT SLEEPY; SHE DENIES PAIN, NAUSEA, AND SOB. STATES SHE HAS SOME PINS AND NEEDLE SENSATIONS IN HER ABDOMEN (POSSIBLY FROM TAP BLOCKS GIVEN BY ANESTHESIOLOGIST WEARING OFF). TAI DRESSING LOCATED ON MID-ABDOMINAL SURGICAL INCISION IS CDI, NO DRAINAGE NOTED. PT INFORMED REGARDING ABOUT HER PROGRESS/STATUS, AND THE OR NURSE TOLD HER THAT DR. OTTO HAD CALLED THE PT's TO UPDATE HIM. PATTEN PATENT DRAINING YELLOW URINE. GAVE REPORT TO CHICO ALLISON IN PCU.
[2020-06-30 03:59] LABS: BASOPHILS ABSOLUTE AUTO 0.06 K/mm3 (0.00-0.23); BASOPHILS PERCENT AUTO 0 % (0-2); Hematocrit 40.9 % (33.0-51.0); Hemoglobin 13.6 g/dL (11.5-16.0); LYMPHOCYTES ABSOLUTE AUTO 0.55 K/mm3 (0.84-5.20); LYMPHOCYTES PERCENT AUTO 3 % (21-46); MONOCYTES ABSOLUTE AUTO 1.43 K/mm3 (0.16-1.47); MONOCYTES PERCENT AUTO 9 % (4-13); Mean Corpuscular HGB 29.3 pg (26.0-34.0); Mean Corpuscular HGB Conc 33.3 g/dL (31.5-36.5); Mean Corpuscular Volume 88 fL (80-100); Mean Platelet Volume 10.2 fL (9.1-12.4); Platelet Count 266 K/mm3 (150-400); RDW Coefficient Variation 14.2 % (11.7-14.2); RDW Standard Deviation 45.7 fL (35.1-46.3); Red Blood Cell Count 4.64 M/mm3 (3.80-5.20); White Blood Cell Count 16.45 K/mm3 (4.00-11.30)
[2020-06-30 04:00] LABS: EOSINOPHILS PERCENT AUTO 0 % (0-6); IMMATURE GRAN ABSOLUTE AUTO 0.08 K/mm3 (0.00-0.10); IMMATURE GRAN PERCENT AUTO 1 % (0-1); NEUTROPHILS ABSOLUTE AUTO 14.33 K/mm3 (1.96-9.15); NEUTROPHILS PERCENT AUTO 87 % (41-73)
[2020-06-30 04:16] LABS: Albumin, Blood 2.6 g/dL (3.4-5.0); Albumin/Globulin Ratio 0.7 (0.8-1.8); Bilirubin, Total 0.7 mg/dL (0.1-1.0); Calcium, Blood 8.1 mg/dL (8.5-10.1); Creatinine, Blood 2.07 mg/dL (0.40-1.00); Globulin, Blood 3.9 g/dL (2.2-4.0); Magnesium, Blood 1.9 mg/dL (1.6-2.4); Potassium, Blood 4.4 mmol/L (3.5-5.5); Total Protein, Blood 6.5 g/dL (6.4-8.2)
[2020-06-30 04:46] LABS: BAND PERCENT MAN 6 % (0-8); BASOPHILS PERCENT MAN 0 % (0-2); EOSINOPHILS PERCENT MAN 0 % (0-6); LYMPHOCYTES ABSOLUTE MAN 0.32 K/mm3 (0.84-5.20); LYMPHOCYTES PERCENT MAN 2 % (21-46); METAMYELOCYTE ABSOLUTE MAN 0.16 K/mm3 (0.00-0.00); METAMYELOCYTE PERCENT MAN 1 % (0-0); MONOCYTES ABSOLUTE MAN 0.98 K/mm3 (0.16-1.47); MONOCYTES PERCENT MAN 6 % (4-13); NEUTROPHILS ABSOLUTE MAN 14.96 K/mm3 (1.96-9.15); SEG NEUTROPHILS PERCENT MAN 85 % (41-73); TOTAL CELLS COUNTED 100
--- NOTE | 2020-06-30 04:58 | NUR ---
shift summary pt came back from surgery/recovery at about midnight. pt appeared to be comfortable - not requiring pain medication aside from ordered fentanyl multimedia designer - see emar. surgical site c/d/i, wound vac in place, belly soft and nontender. alert and oriented - able to make needs known. sats >90% on 4lnc. tele nsr. no c/o chest pain. montilla put in during surgery - draining to gravity, shirin care performed. no bowel movement. vss. call light within reach, bed in lowest position. will continue to monitor.
--- NOTE | 2020-06-30 14:57 | NUR ---
TRANSFER: REPORT RECEIVED FROM JARRED DERMATOLOGY SALES REPRESENTATIVE. PT TO UNIT AT ABOUT 1425. UPON ASSESSMENT PT IS A/O, TRANSFERED FROM WHEELCHAIR TO BED WITH SBA. NO DISTRESS NOTED, DENIES SOB. LUNGS ARE CLEAR, DIM AT BASES. SURGICAL SITE/TAI WNL. ABD IS SOFT, PT DENIES PASSING GAS. PT ABLE TO HAVE CLEAR LIQUIDS AT THIS TIME. PATTEN DRAINING. PT ORIENTED TO ROOM, CALL LIGHT. PT AT BEDSIDE, WILL CTM.
--- NOTE | 2020-06-30 15:23 | NUR ---
PT STATUS CHANGED TO SURGICAL WITH NO TELE. PT TRANSFERRED TO 227 REPORT GIVEN TO JORGE L GOLDEN. PT WITH NO COMPLAINS THIS AM, REMAINS ON CONTINUOUS GLASS LINED TANK REPAIRER PUMP AT 10MCG/HR WITH 8 MINS LOCKOUT, 10MCG PER BUTTON RELEASE. PT RECEIVED A BED BATH THIS AM, TOLERATED WELL. DRESSING ON ABD REMAINED CDI, PI CO MACHINE REMAINED ATTACHED TO THE DRESSING. NO REPORTED PASSING FLATUS/GAS FOR THE SHIFT, PT WORKED WITH PT WAS ABLE TO TOLERATE AMBULATE AND TRANSFER TO CHAIR. PT TO START DIET TONIGHT ON CLEAR LIQUIDS. PT VITALS SR 70'S, BP SYSTOLIC 130'S, SATS ABOVE 90% ON 4L OF O2, AFEBRILE. NO OTHER ISSUES ENCOUNTERED FOR THE SHIFT. ALL BELONGINGS SENT WITH PT, PT ACCOMPANIED BY PCT VIA WHEELCHAIR, AT BEDSIDE AWARE.
--- NOTE | 2020-06-30 17:15 | NUR ---
SUMMARY: NO ACUTE CHANGE SINCE TRANSFER. PT A/O, VSS. ABLE TO TAKE WALK IN [place], EMERGENCY DEPARTMENT NURSE APPEARS TO BE MANAGING PAIN WELL. PT ALICIA SMALL AMT CLEAR LIQ. SURGICAL SITE WNL. NO SAFETY CONCERNS, WILL CTM AND REPORT TO NOC RN
[2020-07-01 04:45] LABS: Hematocrit 34.9 % (33.0-51.0); Hemoglobin 11.4 g/dL (11.5-16.0); Mean Corpuscular HGB 28.9 pg (26.0-34.0); Mean Corpuscular HGB Conc 32.7 g/dL (31.5-36.5); Mean Corpuscular Volume 89 fL (80-100); Mean Platelet Volume 10.3 fL (9.1-12.4); Platelet Count 269 K/mm3 (150-400); RDW Coefficient Variation 14.1 % (11.7-14.2); RDW Standard Deviation 45.4 fL (35.1-46.3); Red Blood Cell Count 3.94 M/mm3 (3.80-5.20); White Blood Cell Count 14.77 K/mm3 (4.00-11.30)
[2020-07-01 05:11] LABS: Bun/Creatinine Ratio 18.5 (12.0-20.0); Calcium, Blood 8.1 mg/dL (8.5-10.1); Creatinine, Blood 2.33 mg/dL (0.40-1.00); Potassium, Blood 3.9 mmol/L (3.5-5.5)
--- NOTE | 2020-07-01 06:31 | NUR ---
SUMMARY PT SLEPT QUIETLY.USING ROVING DEPARTMENT SUPERVISOR INFREQUENTLY.
--- NOTE | 2020-07-01 07:47 | NUR ---
PT WITH INCREASING PAIN TO HANDS,HEAT AND SWELLING NOTED STATES BASELINE INTERMITTENTLY AT HOME.VERB USES ICE,GAVE PT ICE PACK.RADIAL PULSES STRONG.
--- NOTE | 2020-07-01 12:33 | NUR ---
CBG OF 415 BEFORE LUNCH, DR. COX MADE AWARE. SEE NEW ORDERS.
--- NOTE | 2020-07-01 15:50 | NUR ---
PT CBG RECHECKED, AND BLOOD SUGAR 257. DR. COX NOTIFIED, NO ORDERS FOR INSULIN COVERAGE AT THIS TIME. PT WONDERING WHEN SHE WILL START TAKING HE REGULAR HOME MEDS, THIS RN VERIFIED MED REC WITH PT, MED REC IS UP-TO-DATE. MADE DR. COX AWARE OF PT'S CONCERN ABOUT RESTARTING MEDICATIONS.
--- NOTE | 2020-07-01 18:35 | NUR ---
SUMMARY: PT IS POD2 COLECTOMY. NO ACUTE CHANGE, VSS, A/O. SURGICAL SITE WNL. ABD IS SOFT, PT DENIES FLATUS, IS TOLERATING CLEAR LIQS. CBG'S STABLE TONIGHT. PT HAS VOIDED SINCE PATTEN DC'D. GRAVITY PROSPECTING OPERATOR HELPER CONTINUES TO INFUSE, PT HAS DENIED PAIN. WALKS WITH SBA TO BATHROOM AND ABLE TO AMBULATE WITH PHYSICAL THERAPY. HOME CPAP SET UP FOR THE EVENING. NO ACUTE CONCERNS AT THIS TIME, WILL CTM AND REPORT TO JOÃO GOLDEN.
--- NOTE | 2020-07-02 07:30 | NUR ---
oob to bathroom to void then to chair pt has not passed any flatus but belching hpoactive bt's no nausea at this time taking cls
--- NOTE | 2020-07-02 08:00 | NUR ---
PT SLEPT BETWEEN CBG CHECKS TONIGHT.NO ACUTE CHANGES NOTED.
--- NOTE | 2020-07-02 11:06 | NUR ---
o2 dec to 1 l nc
--- NOTE | 2020-07-02 12:45 | NUR ---
DR OTTO BY TO SEE PT
--- NOTE | 2020-07-02 13:46 | NUR ---
biox dec to 86% inc o2 to 3 l nc
--- NOTE | 2020-07-03 03:09 | NUR ---
PT REPORTS PASSING FLATUS
[2020-07-03 04:13] LABS: BASOPHILS ABSOLUTE AUTO 0.03 K/mm3 (0.00-0.23); BASOPHILS PERCENT AUTO 0 % (0-2); EOSINOPHILS PERCENT AUTO 4 % (0-6); Hematocrit 31.8 % (33.0-51.0); Hemoglobin 10.3 g/dL (11.5-16.0); IMMATURE GRAN ABSOLUTE AUTO 0.09 K/mm3 (0.00-0.10); IMMATURE GRAN PERCENT AUTO 1 % (0-1); LYMPHOCYTES PERCENT AUTO 14 % (21-46); MONOCYTES ABSOLUTE AUTO 0.98 K/mm3 (0.16-1.47); MONOCYTES PERCENT AUTO 13 % (4-13); Mean Corpuscular HGB Conc 32.4 g/dL (31.5-36.5); Mean Corpuscular Volume 90 fL (80-100); NEUTROPHILS ABSOLUTE AUTO 5.02 K/mm3 (1.96-9.15); NEUTROPHILS PERCENT AUTO 68 % (41-73); Platelet Count 325 K/mm3 (150-400); RDW Coefficient Variation 14.3 % (11.7-14.2); RDW Standard Deviation 46.6 fL (35.1-46.3); Red Blood Cell Count 3.55 M/mm3 (3.80-5.20); White Blood Cell Count 7.42 K/mm3 (4.00-11.30)
[2020-07-03 04:37] LABS: Bun/Creatinine Ratio 18.9 (12.0-20.0); Calcium, Blood 8.2 mg/dL (8.5-10.1); Creatinine, Blood 1.69 mg/dL (0.40-1.00); Potassium, Blood 4.2 mmol/L (3.5-5.5)
--- NOTE | 2020-07-03 05:51 | NUR ---
SHIFT SUMMARY: PAWEL AROUSES EASILY AND RESPONDS APPROPRIATELY. VSS, NO ACUTE EVENTS OVERNIGHT. CPAP WHILE SLEEPING, O2 @ 3 L VIA NC DURING THE DAY. SHE IS A ONE PERSON STANDBY ASSIST TO THE BATHROOM. SHE PASSED FLATUS THIS AM. TAI CHANGED TWICE D/T SATURATION. CONTINUOUS BIOX IN PLACE. TOLERATING FULL LIQUID DIET. ATTENDS IN PLACE FOR URINARY LEAKAGE. SHE IS LYING IN BED WITH HER CALL LIGHT IN REACH. WILL REPORT TO DAY SHIFT RN.
--- NOTE | 2020-07-03 18:03 | NUR ---
SHIFT SUMMARY PT ALERT AND ORIENTED THROUGHOUT SHIFT. 1 PERSON SBA TO BATHROOM WITH GAIT BELT AND WALKER. BURPING AND PASSING SOME GAS. NO BM THIS SHIFT. OCCASIONAL NAUSEA. ABD INCISION HAD LARGE AMOUNT OF SS DRAINAGE THROUGHOUT SHIFT. TAI WAS CHANGED AND THE DC'D IN FAVOR OF ABD PADS TO BASORB. DR ELDER REMOVED BJ TO OPEN INCISION AT BEDSIDE TO INVESTIGATE. HE DEEMED IT TO BE A SEROMA. HE PACKED WOUND WITH GAUZE AND COVERED WITH ABD. CT REVEALED WOUND WAS INTACT, HOWEVER, HER STOMACH WAS DISTENDED. PATIENT PLACED ON NPO. IV FLUIDS RESTARTED. PATIENT RESTING IN BED AT THIS TIME. MEDICATED PRN FOR PAIN PER EMAR.
--- NOTE | 2020-07-03 19:00 | NUR ---
RECEIVED REPORT AND ASSUMED CARE OF PT. CHANGED DRESSING TO ABDOMEN WITH DAY SHIFT RN. PT DENIES ANY NEEDS AT THIS TIME. NOAM.
--- NOTE | 2020-07-03 23:03 | NUR ---
NG TUBE PLACED PER ORDER. IMMEDIATE RETURN OF BROWN LIQUID, APPROX 500 ML. LSC. PT REPORTS IMPROVEMENT IN SYMPTOMS. ORDER PLACED FOR X-RAY TO CONFIRM PLACEMENT. PT RESTING QUIETLY WITH CALL LIGHT IN REACH.
--- NOTE | 2020-07-04 04:56 | NUR ---
SHIFT SUMMARY: PAWEL IS A&OX4. VSS, NO ACUTE EVENTS OVERNIGHT. BLOOD SUGAR STABLE. PT REMAINS NPO. SHE DID HAVE AN EPISODE OF EMESIS THIS SHIFT AND NG TUBE WAS PLACED, 1100 OF BROWN LIQUID ASPIRATED. NG TO LIS. O2 @ 2 LPM DURING SLEEP. SHE IS A STANDBY ASSIST, ATTENDS IN PLACE. SHE IS LYING IN BED WITH THE CALL LIGHT IN REACH. WILL REPORT TO DAY SHIFT RN.
--- NOTE | 2020-07-04 16:11 | NUR ---
SHIFT SUMMARY POD 5 PT AA0X4, PT HAS DENIED NAUSEA ALL DAY. MINIMAL OUTPUT IN NG TUBE DURING DAY. DENIES PAIN. DRESSING CHANGED X1 TODAY. GAUZE PACKING WAS SATURATED PRIOR TO CHANGE. DR ELDER IN ROOM DURING CHANGE TO SEE WOUND. BJ INTACT ABOVE AND BELOW OPEN AREA. PT NPO PER ORDERS, TOLERATING WELL. PLAN WILL BE TO CONTINUE DRESSING CHANGES. PT BROUGHT IN CPAP SUPPLIES FOR HER.
[2020-07-05 05:11] LABS: BASOPHILS ABSOLUTE AUTO 0.05 K/mm3 (0.00-0.23); BASOPHILS PERCENT AUTO 1 % (0-2); EOSINOPHILS ABSOLUTE AUTO 0.18 K/mm3 (0.00-0.68); EOSINOPHILS PERCENT AUTO 3 % (0-6); Hematocrit 33.8 % (33.0-51.0); Hemoglobin 10.9 g/dL (11.5-16.0); IMMATURE GRAN ABSOLUTE AUTO 0.16 K/mm3 (0.00-0.10); IMMATURE GRAN PERCENT AUTO 2 % (0-1); LYMPHOCYTES ABSOLUTE AUTO 1.32 K/mm3 (0.84-5.20); LYMPHOCYTES PERCENT AUTO 18 % (21-46); MONOCYTES ABSOLUTE AUTO 1.19 K/mm3 (0.16-1.47); MONOCYTES PERCENT AUTO 16 % (4-13); Mean Corpuscular HGB 29.1 pg (26.0-34.0); Mean Corpuscular HGB Conc 32.2 g/dL (31.5-36.5); Mean Corpuscular Volume 90 fL (80-100); Mean Platelet Volume 9.4 fL (9.1-12.4); NEUTROPHILS ABSOLUTE AUTO 4.37 K/mm3 (1.96-9.15); NEUTROPHILS PERCENT AUTO 60 % (41-73); Platelet Count 370 K/mm3 (150-400); RDW Coefficient Variation 14.4 % (11.7-14.2); RDW Standard Deviation 47.6 fL (35.1-46.3); Red Blood Cell Count 3.75 M/mm3 (3.80-5.20); White Blood Cell Count 7.27 K/mm3 (4.00-11.30)
[2020-07-05 05:55] LABS: Calcium, Blood 7.7 mg/dL (8.5-10.1); Creatinine, Blood 1.21 mg/dL (0.40-1.00); Potassium, Blood 4.1 mmol/L (3.5-5.5); Thyroid Stimulating Hormone 1.55 uIU/mL (0.360-4.800)
--- NOTE | 2020-07-05 06:16 | NUR ---
SHIFT SUMMARY: PAWEL IS A&OX4. VS W/ELEVATED BLOOD PRESSURE THIS AM. PT REPORTS FEELING DISCOURAGED AND "SICK OF BEING SICK". SHE REPORTS PASSING SIGNIFICANT AMOUNTS OF GAS OVERNIGHT, NO BM YET. GFR AND CREATINING IMPROVING. BLOOD SUGARS TRENDING DOWNWARD, WNL THIS SHIFT. SHE HAS REFUSED THE LONG ACTING INSULIN D/T NPO STATUS. SHE IS A ONE PERSON STANDBY ASSIST TO THE BATHROOM. SHE IS URINATING WITHOUT DIFFICULTY. POWERGLIDE TO L UPPER ARM PATENT, DOES NOT DRAW. SHE HAS BEEN ABLE TO TOLERATE THE CPAP OVER THE NG TUBE THIS SHIFT. SHE IS LYING IN BED WITH THE CALL LIGHT IN REACH. WILL REPORT TO DAY SHIFT RN.
--- NOTE | 2020-07-05 19:28 | NUR ---
SUMMARY: PT IS POD6 FOR R KATHARINE COLECTOMY. NO ACUTE CHANGE TODAY. VSS,A/O. PT AMBULATES TO BATHROOM FREQUENTLY WITH SBA AND FWW. SURGICAL DRESSING REPLACED WITH WOUND VAC TODAY PER DR. OTTO. SITE WNL CURRENTLY. NGT TO GRAVITY DRAIN AT ABOUT 1500, NO C/O NAUSEA. MINIMAL OUTPUT NOTED. PT TOLERATING CLEAR LIQ CURRENLTY, REMINDED TO DRINK SMALL AMTS AND NOT OVER DO. PT HAS DENIED PAIN.NO ACUTE CONCERNS AT THIS TIME, REPORT GIVEN TO CHICO TAVERA.
--- NOTE | 2020-07-06 04:30 | NUR ---
SHIFT SUMMARY NO ACUTE CHANGES THIS SHIFT, NO C/O ANY KIND, A&O, VSS, REFUSED LONG ACTING INSULIN D/T POOR PO INTAKE-PT STATES HER BLOOD SUGAR "TENDS TO GO LOW", CLINIMIS INFUSING, SLEPT T/O THE NIGHT W/CPAP AND SLEEPING AT THIS TIME, CALL LIGHT IN REACH, WILL CONT TO MONITOR UNTIL REPORT GIVEN TO DAY RN.
--- NOTE | 2020-07-06 14:54 | NUR ---
CHELITA BARRERA'D AT ABOUT 1442
--- NOTE | 2020-07-06 17:23 | NUR ---
SUMMARY: NO ACUTE CHANGE TODAY. PT CONTINUES TO IMPOVE. ALICIA CLEAR LIQS, ABLE TO WALK IN HALLS TODAY WITH THERAPY FREE OF NGT. WOUND VAC WNL. PT DENIES N/V, NO REPORT OF FLATUS. DENIES PAIN. WILL CTM AND REPORT TO JOÃO RN.
--- NOTE | 2020-07-07 03:54 | NUR ---
SHIFT SUMMARY POD8 R KATHARINE COLECTOMY, A/O X4, VSS, TOLERATING DIET, PASSING FLATUS, VOIDING WELL, AMBULATING W/ 1 PER SBA, DENIES PAIN. NO ACUTE EVENTS THIS SHIFT. HS CBG SLIGHTLY HIGHER THAN PRIOR READINGS, DR NOTIFIED AND ONE TIME DOSE OF ADDITIONAL INSULIN GIVEN PER ORDER (SEE EMAR). CALL LIGHT IN REACH, WILL CONTINUE TO MONITOR AND REPORT TO ONCOMING DAY RN.
--- NOTE | 2020-07-07 07:25 | NUR ---
PT ON CPAP STATED THEY TRIAL IT WITH OUT A BLEED IN OF OXYGEN CURRENTLY IT IS ON 4 L DURING THE DAY SHE IS ON RA LS CL T/O DIM BASES MIN SEC CL ONLY PT REPORTS PASSING GAS AND HAS HAD 2 BM MIN PAIN
--- NOTE | 2020-07-07 11:13 | NUR ---
dr lorenzo notified pt's bs [id number]
--- NOTE | 2020-07-07 14:27 | NUR ---
dr lorenzo by to see pt earlier dr stout by to see pt diet adv
--- NOTE | 2020-07-07 16:51 | NUR ---
pt visiting with spouse asked if she has passed any gas or had a bm stated yes flatus with last void no bm today offered prune juice pt declined
--- NOTE | 2020-07-07 17:10 | NUR ---
PT MEDS GIVEN PER HIGH S/S COVERAGE PT SITTING ON EDGE OF THE BED PT'S SPOUSE WENT HOME
--- NOTE | 2020-07-07 18:32 | NUR ---
PT ALICIA ADA DIET PT ALSO STATED SHE STARTED PASSING A LOT OF GAS ONCE SHE STARTED TO EAT
--- NOTE | 2020-07-08 04:51 | NUR ---
SHIFT SUMMARY: PT S/P R KATHARINE COLECTOMY. MIDLINE ABD WOUND VAC COMPRESSED AND SUCTIONING A SMALL AMOUNT OF SS FLUID. PT REPORTS PASSING FLATUS. TOLERATING PO. DENIES N/V. INDEPENDENT TO BSC. VOIDING WELL. CBG 206; PT COVERED WITH SEMGLEE PER ORDERS. PT CURRENTLY APPEARS TO BE RESTING WITH CPAP IN PLACE.
[2020-07-08] MEDS ORDERED: INSULANPEN SC (15:23)
[2020-07-08] MEDS ORDERED: HUMALOG KW100 UNIT/1 SC (15:31)
--- NOTE | 2020-07-08 18:43 | NUR ---
SHIFT SUMMARY PT A&OX4, VSS, LEFT FLOOR VIA WC WITH FIELD CARE MANAGER TO GO HOME WITH , WITH ALL PERSONAL POSSESSIONS INCLUDING DC PACKET AND HOME WOUND VAC(DRESSING CHANGED TODAY BEFORE DC)/(WITH BAG OF DRESSING SUPPLIES, AND FOLDER WITH VAC COMPANY INSTRUCTIONS). DC INSTRUCTIONS PROVIDED. PT REP UNDERSTANDING THOSE INSTRUCTIONS INCLUDING FU WITH SURGEON, FU WITH PCP, HH WILL BE TO PT HOME ON SUNDAY (ALREADY CALLED AND SCHEDULED WITH PT) FOR WOUND VAC DRESSING CHANGE. IV DC'D.
== END 2020-07-08 18:12 | disposition home or self-care (01) | DRG 329 ==
LOC: ER 11:14 → SURS 13:56 → PCU 13:56 → ER 14:52 → PCU 15:18 → SURS 06-30 14:29
PROVIDERS: Emergency Medicine; Internal Medicine; Nurse Practitioner Acute Care; Surgery; ADMIT Internal Medicine
PROC: 0DTF0ZZ Resection of Right Large Intestine, Open Approach (ICD-10-PCS; principal; 2020-06-29 15:00)
DX: K56.2 Volvulus (principal); K35.32 Acute appendicitis with perforation, localized peritonitis, and gangrene, without abscess; I50.32 Chronic diastolic (congestive) heart failure; N17.9 Acute kidney failure, unspecified; I13.0 Hypertensive heart and chronic kidney disease with heart failure and stage 1 through stage 4 chronic kidney disease, or unspecified chronic kidney disease; J44.9 Chronic obstructive pulmonary disease, unspecified; E78.5 Hyperlipidemia, unspecified; E66.01 Morbid (severe) obesity due to excess calories; I25.10 Atherosclerotic heart disease of native coronary artery without angina pectoris; D63.8 Anemia in other chronic diseases classified elsewhere; K21.9 Gastro-esophageal reflux disease without esophagitis; E11.51 Type 2 diabetes mellitus with diabetic peripheral angiopathy without gangrene; K56.0 Paralytic ileus; Z20.822 Contact with and (suspected) exposure to COVID-19; Z96.652 Presence of left artificial knee joint; Z98.890 Other specified postprocedural states; N18.30 Chronic kidney disease, stage 3 unspecified; Z87.891 Personal history of nicotine dependence; Z89.422 Acquired absence of other left toe(s); Z88.1 Allergy status to other antibiotic agents; Z88.0 Allergy status to penicillin; Z88.8 Allergy status to other drugs, medicaments and biological substances; Z79.82 Long term (current) use of aspirin; Z79.02 Long term (current) use of antithrombotics/antiplatelets; Z90.49 Acquired absence of other specified parts of digestive tract; Z79.899 Other long term (current) drug therapy; Z79.4 Long term (current) use of insulin; E11.22 Type 2 diabetes mellitus with diabetic chronic kidney disease; G47.33 Obstructive sleep apnea (adult) (pediatric)
CPT/HCPCS: 0241U; 36415; 71045; 74177; 80048; 80053; 81001; 82803; 82947; 83605; 83690; 83735; 84443; 85025; 85027; 87040; 88307; 93005; 93010; 94660; 94762; 96374; 96375; 97110; 97116; 97162; 97530; 99285-25; A9270; A9270-GY; C1751; C9113; J0744; J1100; J1170; J2370; J2405; J2704; J3010; J7030; Q9967

== ENCOUNTER 2020-07-11 17:04 | Observation (INO) | payer MEDICARE, OTHER ==
[~2020-07-11] VITALS: Ht 160 cm; Wt 99.8 kg
[~2020-07-11 17:04] MED LIST changes: +Aspir 8181 MG PO; +BASAGLAR K100 UNIT/1 SC; +DICLOFENAC SOD100 G1 TOP; +DORZOLAMIDE-TIM10 ML BOTHEYES; +DULO30 PO; +ESTRADIOL1 MG PO; +HUMALOG KW100 UNIT/1 SC; +HUMALOG100 UNIT/1 SQ; +ISOSORBIDE MONO60 MG PO; +LATANOPROST2.5 M3 BOTHEYES; +ROSU5 PO; +VICTOZA 2-0.6 MG/0.1 SC
[2020-07-11 21:01] LABS: BASOPHILS ABSOLUTE AUTO 0.05 K/mm3 (0.00-0.23); BASOPHILS PERCENT AUTO 0 % (0-2); EOSINOPHILS ABSOLUTE AUTO 0.33 K/mm3 (0.00-0.68); EOSINOPHILS PERCENT AUTO 3 % (0-6); Hematocrit 30.9 % (33.0-51.0); Hemoglobin 10.3 g/dL (11.5-16.0); IMMATURE GRAN ABSOLUTE AUTO 0.11 K/mm3 (0.00-0.10); IMMATURE GRAN PERCENT AUTO 1 % (0-1); LYMPHOCYTES ABSOLUTE AUTO 1.72 K/mm3 (0.84-5.20); LYMPHOCYTES PERCENT AUTO 14 % (21-46); MONOCYTES ABSOLUTE AUTO 1.22 K/mm3 (0.16-1.47); MONOCYTES PERCENT AUTO 10 % (4-13); Mean Corpuscular HGB 29.3 pg (26.0-34.0); Mean Corpuscular HGB Conc 33.3 g/dL (31.5-36.5); Mean Corpuscular Volume 88 fL (80-100); Mean Platelet Volume 9.5 fL (9.1-12.4); NEUTROPHILS ABSOLUTE AUTO 8.95 K/mm3 (1.96-9.15); NEUTROPHILS PERCENT AUTO 72 % (41-73); Platelet Count 389 K/mm3 (150-400); RDW Coefficient Variation 14.3 % (11.7-14.2); RDW Standard Deviation 45.6 fL (35.1-46.3); Red Blood Cell Count 3.52 M/mm3 (3.80-5.20); White Blood Cell Count 12.38 K/mm3 (4.00-11.30)
[2020-07-11 21:39] LABS: Albumin, Blood 2.5 g/dL (3.4-5.0); Albumin/Globulin Ratio 0.6 (0.8-1.8); Bilirubin, Total 0.4 mg/dL (0.1-1.0); Bun/Creatinine Ratio 12.4 (12.0-20.0); Calcium, Blood 7.8 mg/dL (8.5-10.1); Creatinine, Blood 1.45 mg/dL (0.40-1.00); Potassium, Blood 3.6 mmol/L (3.5-5.5); Total Protein, Blood 6.5 g/dL (6.4-8.2)
--- NOTE | 2020-07-12 05:03 | NUR ---
SHIFT SUMMARY PT ARRIVED TO FLOOR AROUND 0145 FROM ER VIA STRETCHER, TRANSFERED TO BED W/ SLIDER SHEET AND 3 STAFF, PT APPEARED STABLE AT TIME OF ARRIVAL, DENIES PAIN, REPORTS HEADACHE THAT SHE HAD IN ER HAS SUBSIDED. ABDOMINAL INCISION WAS PACKED W/ WHAT APPEARED TO BE 2 ABD PADS COVERED W/ OPSITE. THIS DRESSING WAS COMPLETELY SATURATED W/ POOLING SS DRAINAGE COVERING THE DRESSING. DRESSING WAS CAREFULLY REMOVED, CLEANED USING STERILE GAUZE AND STERILE SALINE. ONE LOCATION NOTED TO BE OOZING FROM INFERIOR L SIDE OF INCISION. 2 STACKS OF DAMP STERILE 4X4 GAUZE WAS PLACED OVER WOUND W/ 2 STERILE ABD PADS FOLDED IN HALF PLACED OVER THE TOP OF THAT. THIS WAS COVERED BY 2 LARGE TEGADERM FILMS, CLOTH TAPE WAS USED AROUND THE EDGES TO HELP REINFORCE THE SEAL AND PREVENT LEAKS, AN ABDOMINAL BINDER WAS PLACED OVER THIS TO HELP APPLY PRESSURE AND CONTROL BLEEDING. PT REPORTS BEIGN COMFORTABLE AFTER THIS DRESSING CHANGE WAS COMPLETED. PT DRESSING HAS BEEN CHECKED W/ EACH RN ROUNDING TO MONITOR FOR ANY CONTINUED DRAINAGE, AT TIME OF THIS NOTE DRESSING IS STILL C/D/I. PT HAS PURWICK IN PLACE TO HELP MINIMIZE MOVEMENT AND ABD STRAINING. NO ACUTE EVENTS SINCE ARRIVAL TO UNIT. CALL LIGHT IN REACH, WILL CONTINUE TO MONITOR AND REPORT TO ONCOMING DAY RN.
[2020-07-12 08:16] LABS: BASOPHILS ABSOLUTE AUTO 0.04 K/mm3 (0.00-0.23); BASOPHILS PERCENT AUTO 0 % (0-2); EOSINOPHILS ABSOLUTE AUTO 0.33 K/mm3 (0.00-0.68); EOSINOPHILS PERCENT AUTO 3 % (0-6); Hematocrit 28.4 % (33.0-51.0); Hemoglobin 9.1 g/dL (11.5-16.0); IMMATURE GRAN ABSOLUTE AUTO 0.04 K/mm3 (0.00-0.10); IMMATURE GRAN PERCENT AUTO 0 % (0-1); LYMPHOCYTES ABSOLUTE AUTO 1.56 K/mm3 (0.84-5.20); LYMPHOCYTES PERCENT AUTO 14 % (21-46); MONOCYTES ABSOLUTE AUTO 1.12 K/mm3 (0.16-1.47); MONOCYTES PERCENT AUTO 10 % (4-13); Mean Corpuscular HGB 28.8 pg (26.0-34.0); Mean Corpuscular Volume 90 fL (80-100); Mean Platelet Volume 9.7 fL (9.1-12.4); NEUTROPHILS PERCENT AUTO 72 % (41-73); Platelet Count 412 K/mm3 (150-400); RDW Coefficient Variation 14.2 % (11.7-14.2); RDW Standard Deviation 46.7 fL (35.1-46.3); Red Blood Cell Count 3.16 M/mm3 (3.80-5.20); White Blood Cell Count 10.89 K/mm3 (4.00-11.30)
[2020-07-12 08:32] LABS: Albumin, Blood 2.4 g/dL (3.4-5.0); Albumin/Globulin Ratio 0.6 (0.8-1.8); Bilirubin, Total 0.3 mg/dL (0.1-1.0); Bun/Creatinine Ratio 11.8 (12.0-20.0); Calcium, Blood 7.3 mg/dL (8.5-10.1); Creatinine, Blood 1.36 mg/dL (0.40-1.00); Globulin, Blood 3.8 g/dL (2.2-4.0); Potassium, Blood 3.7 mmol/L (3.5-5.5); Total Protein, Blood 6.2 g/dL (6.4-8.2)
[2020-07-12 13:28] LABS: Hematocrit 28.3 % (33.0-51.0); Hemoglobin 8.9 g/dL (11.5-16.0)
--- NOTE | 2020-07-12 13:55 | NUR ---
Upon receiving a spiritual care referral, I visit patient. Patient tells me about her last couple of really difficult weeks and how thankful she is to finally be able to go home and hopefully stay home. She talks about her solid support system and her Hinduism Leny. I listen empathically and provide prayer. Patient responds well and shows signs of an elevated mood.
--- NOTE | 2020-07-12 17:43 | NUR ---
SHIFT SUMMARY PATIENT ALERT AND ORIENTED THROUGHOUT SHIFT. INDEPENDENT WITH WALKER TO BATHROOM. REPORTS PAIN TOLERABLE. ABD WOUND WITH SS DRAINAGE TO GAUZE AND ABD PADS. PLAN TO KEEP PATIENT TONIGHT AND DISCHARGE TOMORROW. TOLERATING REGULAR DIET AND LIQUIDS. SALINE LOCKED. VOIDING WELL.
--- NOTE | 2020-07-13 03:27 | NUR ---
SHIFT SUMMARY: POST OP COMPLICATION PATIENT IS ALERT AND ORIENTED X4. VS ARE WNL AND IS ON RA. PAIN IS MANAGED WITH IV FENTANYL. ABD WOUND HAS SS DRAINAGE TO GAUZE AND ABD PADS. PATIENT HAS ABD BINDER ON TO HELP KEEP PRESSURE ON IT. SHE HAS BEEN ASLEEP MAJORITY OF THE SHIFT BUT IS EASILY AROUSABLE. SHE IS VOIDING AND TOLERATING PO INTAKE. PATIENT CALLS APPROPRIATELY. CALL LIGHT WITHIN REACH. SHE IS CURRENTLY LAYING ON HER SIDE IN BED. THE PLAN IS TO POSSIBLY BE DISCHARGED HOME LATER TODAY.
[2020-07-13 04:54] LABS: BASOPHILS ABSOLUTE AUTO 0.06 K/mm3 (0.00-0.23); BASOPHILS PERCENT AUTO 1 % (0-2); EOSINOPHILS ABSOLUTE AUTO 0.37 K/mm3 (0.00-0.68); EOSINOPHILS PERCENT AUTO 3 % (0-6); Hematocrit 26.6 % (33.0-51.0); Hemoglobin 8.7 g/dL (11.5-16.0); IMMATURE GRAN ABSOLUTE AUTO 0.07 K/mm3 (0.00-0.10); IMMATURE GRAN PERCENT AUTO 1 % (0-1); LYMPHOCYTES PERCENT AUTO 17 % (21-46); MONOCYTES ABSOLUTE AUTO 1.35 K/mm3 (0.16-1.47); MONOCYTES PERCENT AUTO 11 % (4-13); Mean Corpuscular HGB 29.6 pg (26.0-34.0); Mean Corpuscular HGB Conc 32.7 g/dL (31.5-36.5); Mean Corpuscular Volume 91 fL (80-100); Mean Platelet Volume 9.8 fL (9.1-12.4); NEUTROPHILS PERCENT AUTO 68 % (41-73); Platelet Count 411 K/mm3 (150-400); RDW Coefficient Variation 14.3 % (11.7-14.2); RDW Standard Deviation 46.2 fL (35.1-46.3); Red Blood Cell Count 2.94 M/mm3 (3.80-5.20); White Blood Cell Count 11.95 K/mm3 (4.00-11.30)
[2020-07-13 05:18] LABS: Albumin, Blood 2.4 g/dL (3.4-5.0); Anion Gap 7 mmol/L (6-16); Blood Urea Nitrogen 23 mg/dL (8-24); Bun/Creatinine Ratio 13.1 (12.0-20.0); CO2, Blood 26 mmol/L (21-32); Calcium, Blood 7.6 mg/dL (8.5-10.1); Chloride, Blood 104 mmol/L (98-108); Creatinine, Blood 1.75 mg/dL (0.40-1.00); Glomerular Filtration Rate 30 (60-); Glucose, Blood 198 mg/dL (70-99); Phosphorus, Blood 3.9 mg/dL (2.5-4.9); Potassium, Blood 3.7 mmol/L (3.5-5.5); Sodium, Blood 137 mmol/L (136-145)
--- NOTE | 2020-07-13 13:10 | NUR ---
IV LAC AND R HAND D/C'D INTACT, SITES CLEAR.
--- NOTE | 2020-07-13 15:05 | NUR ---
DISCHARGE DISCHARGE INSTRUCTIONS EXPLAINED TO PATIENT AND PATIENT'S . THEY STATED UNDERSTANDING. WOUND CARE AND DRESSING CHANGES EXPLAINED SEVERAL TIMES. WOUND CARE SUPPLIES PROVIDED. BELONGINGS WITH PATIENT. IV REMVOED WITHOUT ISSUE. FOLLOW UP WITH DR. OTTO ON SUNDAY SCHEDULED. PATIENT TRANSFERED TO PRIVATE VEHICLE VIA WHEELCHAIR.
== END 2020-07-13 14:43 | disposition home or self-care (01) ==
LOC: ER 17:04 → SURS 17:05 → ER 07-12 00:23 → SURS 07-12 00:23
PROVIDERS: Emergency Medicine; Internal Medicine; ADMIT Internal Medicine
DX: L76.22 Postprocedural hemorrhage of skin and subcutaneous tissue following other procedure (principal); D62 Acute posthemorrhagic anemia; I25.10 Atherosclerotic heart disease of native coronary artery without angina pectoris; J44.9 Chronic obstructive pulmonary disease, unspecified; I11.0 Hypertensive heart disease with heart failure; I50.32 Chronic diastolic (congestive) heart failure; E66.01 Morbid (severe) obesity due to excess calories; E11.9 Type 2 diabetes mellitus without complications; K21.9 Gastro-esophageal reflux disease without esophagitis; Z68.39 Body mass index [BMI] 39.0-39.9, adult; Z88.4 Allergy status to anesthetic agent; Z88.1 Allergy status to other antibiotic agents; Z88.0 Allergy status to penicillin; Z88.8 Allergy status to other drugs, medicaments and biological substances; Z79.4 Long term (current) use of insulin; Z96.652 Presence of left artificial knee joint; Z95.820 Peripheral vascular angioplasty status with implants and grafts; Z89.422 Acquired absence of other left toe(s); Z79.02 Long term (current) use of antithrombotics/antiplatelets; Z79.82 Long term (current) use of aspirin; Y83.8 Other surgical procedures as the cause of abnormal reaction of the patient, or of later complication, without mention of misadventure at the time of the procedure
CPT/HCPCS: 36415; 80053; 80069; 82947; 85014; 85018; 85025; 86850; 86900; 86901; 94760; 96374; 96375; 99284-25; A9270; C9113; G0378; J3010

== ENCOUNTER 2021-06-17 08:05 | Day surgery (SDC) | payer MEDICARE, OTHER ==
[~2021-06-17] VITALS: Ht 160 cm; Wt 106.5 kg
== END 2021-06-17 10:07 | disposition home or self-care (01) ==
LOC: ORSCSDS 08:05
PROVIDERS: Surgery
PROC: 0DBM8ZX Excision of Descending Colon, Via Natural or Artificial Opening Endoscopic, Diagnostic (ICD-10-PCS; principal; 2021-06-17 09:15)
DX: Z12.11 Encounter for screening for malignant neoplasm of colon (principal); D12.4 Benign neoplasm of descending colon; G47.33 Obstructive sleep apnea (adult) (pediatric); R06.02 Shortness of breath; I25.10 Atherosclerotic heart disease of native coronary artery without angina pectoris; E11.22 Type 2 diabetes mellitus with diabetic chronic kidney disease; I12.9 Hypertensive chronic kidney disease with stage 1 through stage 4 chronic kidney disease, or unspecified chronic kidney disease; N18.4 Chronic kidney disease, stage 4 (severe); E66.01 Morbid (severe) obesity due to excess calories; Z68.41 Body mass index [BMI] 40.0-44.9, adult; Z87.891 Personal history of nicotine dependence; Z79.899 Other long term (current) drug therapy
CPT/HCPCS: 82947; 88305; J2704; J7120

== ENCOUNTER → 2025-02-19 | Outpatient (CLI) | payer MEDICARE, OTHER | LOC: LAB 17:31 | DX: N39.0 Urinary tract infection, site not specified (principal) ==

== ENCOUNTER 2025-03-20 13:30 | Emergency (ER) | payer MEDICARE, OTHER ==
[~2025-03-20] VITALS: Ht 172.7 cm; Wt 74.8 kg
[~2025-03-20 13:30] MED LIST changes: +ALLO100 PO; +AMLO5 PO; +BACLOFEN5 M1 PO; +CYCL0.05OP BOTHEYES; +Cranberry425 MG PO; +FAMO20 PO; +FARXIGA10 MG PO; +HYDACE10B PO; +HYDROCODONE-AC1 EA19 PO; +PROAIR RESPICL90 MCG INH; +SIMBRINZA 1%-0.28 M1 BOTHEYES; +SIMBRINZA 1%-0.28 M1 OP; +TIMO.5OPSO BOTHEYES; +WIXELA 250-501 EAC1 INH
[2025-03-20] MEDS ORDERED: NS 1,000 ML IV SCH (13:45)
[2025-03-20 14:14] LABS: BASOPHILS ABSOLUTE AUTO 0.04 K/mm3 (0.00-0.23); BASOPHILS PERCENT AUTO 1 % (0-2); EOSINOPHILS ABSOLUTE AUTO 0.29 K/mm3 (0.00-0.68); EOSINOPHILS PERCENT AUTO 3 % (0-6); Hematocrit 41.8 % (33.0-51.0); Hemoglobin 13.7 g/dL (11.5-16.0); IMMATURE GRAN ABSOLUTE AUTO 0.05 K/mm3 (0.00-0.10); IMMATURE GRAN PERCENT AUTO 1 % (0-1); LYMPHOCYTES ABSOLUTE AUTO 1.68 K/mm3 (0.84-5.20); LYMPHOCYTES PERCENT AUTO 20 % (21-46); MONOCYTES ABSOLUTE AUTO 0.44 K/mm3 (0.16-1.47); MONOCYTES PERCENT AUTO 5 % (4-13); Mean Corpuscular HGB Conc 32.8 g/dL (31.5-36.5); Mean Corpuscular Volume 87 fL (80-100); NEUTROPHILS ABSOLUTE AUTO 6.05 K/mm3 (1.96-9.15); NEUTROPHILS PERCENT AUTO 71 % (41-73); NRBC ABSOLUTE 0.00 K/mm3 (0.00-0.02); NRBC Auto 0.0 /100 WBC (0.0-0.2); Platelet Count 213 K/mm3 (150-400); RDW Coefficient Variation 16.3 % (11.7-14.2); RDW Standard Deviation 52.2 fL (35.1-46.3)
[2025-03-20 14:16] LABS: Source, Urine Straight Cath
[2025-03-20 14:35] LABS: Bilirubin, Urine Neg (Neg); Color, Urine Yellow (P-Yellow); Glucose Qualitative, Urine 4+ (Neg); Ketones, Urine Neg (Neg); Leukocyte Esterase, Urine 3+ (Neg); Protein, Urine 3+ (Neg); Specific Gravity, Urine 1.025 (1.003-1.022); Urobilinogen, Urine NORM (Normal)
[2025-03-20 14:43] LABS: Alanine Aminotransfer (ALT/SGP 76.0 U/L (12-78); Albumin, Blood 3.4 g/dL (3.4-5.0); Albumin/Globulin Ratio 0.9 (0.8-1.8); Anion Gap 9.0 mmol/L (3-11); Aspartate Aminotrans (AST/SGOT 99.0 U/L (12-37); Bilirubin, Total 0.4 mg/dL (0.1-1.0); Blood Urea Nitrogen 34.0 mg/dL (8-24); CO2, Blood 26.0 mmol/L (21-32); Calcium, Blood 9.2 mg/dL (8.5-10.1); Chloride, Blood 106.0 mmol/L (98-108); Creatinine, Blood 1.61 mg/dL (0.40-1.00); Globulin, Blood 3.7 g/dL (2.2-4.0); Glucose, Blood 173.0 mg/dL (70-99); Potassium, Blood 3.6 mmol/L (3.5-5.5); Sodium, Blood 137.0 mmol/L (136-145); Total Protein, Blood 7.1 g/dL (6.4-8.2)
[2025-03-20 14:48] LABS: White Blood Cells, Urine TNTC /hpf (0-5)
[2025-03-20] MEDS ORDERED: LEVFLO500 PO (16:01)
[2025-03-20] MEDS ORDERED: BISA5EC PO (16:02)
[2025-03-20 16:30] VITALS: BP 114/89
== END 2025-03-20 18:48 | disposition home or self-care (01) ==
LOC: ER 13:30
PROVIDERS: Emergency Medicine
DX: R41.82 Altered mental status, unspecified (principal); N39.0 Urinary tract infection, site not specified; Z88.0 Allergy status to penicillin; Z88.1 Allergy status to other antibiotic agents; Z88.8 Allergy status to other drugs, medicaments and biological substances; Z79.82 Long term (current) use of aspirin; Z79.02 Long term (current) use of antithrombotics/antiplatelets; Z79.4 Long term (current) use of insulin; Z79.51 Long term (current) use of inhaled steroids; Z79.899 Other long term (current) drug therapy
CPT/HCPCS: 36415; 51701; 70450; 80053; 81001; 82947; 83605; 83690; 84484; 85025; 87077; 87086; 87186; 93005; 93010; 96365; 99285-25; J1956; J7030